=== PATIENT | male | born 1975 | race African-American/Black ===

== ENCOUNTER 2019-05-13 12:29 | Emergency (ER) | payer OTHER ==
[~2019-05-13] VITALS: Ht 177.8 cm; Wt 98.0 kg
[2019-05-13 12:29] VITALS: BP 134/72
--- NOTE | 2019-05-13 13:34 | PHYS DOC ---
Adult General Chief Complaint Chief Complaint: FACE PROBLEM HPI HPI 44-year-old male presents with gum pain above his front center teeth. The patient is unsure if he had a minor trauma from eating yesterday or something else happened. When he woke up this morning felt like his middle upper lip and upper gums were a bit swollen. They are tender to palpation. He has some expensive gold dental work and is wants to make sure there is not an infection. His tooth #9 is a bridge. He has no other complaints. Review of Systems Review of Systems Constitutional: Denies fever or chills [] Eyes: Denies change in visual acuity, redness, or eye pain [] HENT: Denies nasal congestion or sore throat. Gum pain [] Respiratory: Denies cough or shortness of breath [] Cardiovascular: No additional information not addressed in HPI [] GI: Denies abdominal pain, nausea, vomiting, bloody stools or diarrhea [] : Denies dysuria or hematuria [] Musculoskeletal: Denies back pain or joint pain [] Integument: Denies rash or skin lesions [] Neurologic: Denies headache, focal weakness or sensory changes [] Endocrine: Denies polyuria or polydipsia [] All other systems were reviewed and found to be within normal limits, except as documented in this note. Allergies Allergies Allergies Coded Allergies Type Severity Reaction Last Updated Verified No Known Drug Allergies 05/13/19 No Physical Exam Physical Exam Constitutional: Well developed, well nourished, no acute distress, non-toxic appearance. [] HENT: Small ecchymosis above tooth #8. Frenulum intact. No obvious sign of infection or abscess. Mild tenderness. Normocephalic, atraumatic, bilateral external ears normal, oropharynx moist, no oral exudates, nose normal. [] Eyes: PERRLA, EOMI, conjunctiva normal, no discharge. [] Neck: Normal range of motion, no tenderness, supple, no stridor. [] Cardiovascular: Heart rate regular rhythm, no murmur [] Lungs & Thorax: Bilateral breath sounds clear to auscultation [] Abdomen: Bowel sounds normal, soft, no tenderness, no masses, no pulsatile masses. [] Skin: Warm, dry, no erythema, no rash. [] Back: No tenderness, no CVA tenderness. [] Extremities: No tenderness, no cyanosis, no clubbing, ROM intact, no edema. [] Neurologic: Alert and oriented X 3, normal motor function, normal sensory function, no focal deficits noted. [] Psychologic: Affect normal, judgement normal, mood normal. [] EKG EKG [] Radiology/Procedures Radiology/Procedures [] Course & Med Decision Making Course & Med Decision Making Pertinent Labs and Imaging studies reviewed. (See chart for details) It looks like the patient has had minor trauma to the domes of his upper teeth. I do not see signs of infection or any other concerning issues. He is stable for discharge at this time. If this does not improve in the next day or 2, he will follow-up with his dentist. [] Dragon Disclaimer Dragon Disclaimer This electronic medical record was generated, in whole or in part, using a voice recognition dictation system. Departure Departure: Impression: Primary Impression: Pain in gums Disposition: 01 HOME/RESIDENCE PRIOR TO ADM Condition: STABLE Referrals: PCP,JAKE (PCP) Patient Instructions: Dental Pain, [id number] ROCIO RODNEY DO May 13, 2019 13:34
== END 2019-05-13 13:45 | disposition home or self-care (01) ==
LOC: ER 12:29
DX: S00.532A Contusion of oral cavity, initial encounter (principal); K06.8 Other specified disorders of gingiva and edentulous alveolar ridge; X58.XXXA Exposure to other specified factors, initial encounter; Y93.89 Activity, other specified; Y92.89 Other specified places as the place of occurrence of the external cause; Y99.8 Other external cause status
CPT/HCPCS: 99281

== ENCOUNTER 2019-06-01 05:01 | Emergency (ER) | payer OTHER ==
[~2019-06-01] VITALS: Ht 177.8 cm; Wt 98.0 kg
[2019-06-01 05:01] VITALS: BP 141/90
--- NOTE | 2019-06-01 05:11 | PHYS DOC ---
Past History Past Medical History: No Pertinent History Past Surgical History: No Surgical History Smoking: Non-smoker Alcohol Use: None Drug Use: None General Adult EDM: Chief Complaint: SORE THROAT HPI: HPI: 44-year-old male presents with 2 week history of sore throat which has become worse primarily on the right side. Reports intermittent subjective fever and chills. Denies known sick contacts. Patient reports increased pain with s wallowing and reports he is "losing his voice ". Review of Systems: Review of Systems: Constitutional: Reports intermittent subjective fever/chills Eyes: Denies redness or eye pain HENT: Denies nasal congestion; reports sore throat Respiratory: Denies cough or shortness of breath Cardiovascular: Denies chest pain or palpitations GI: Denies abdominal pain, nausea, or vomiting : Denies dysuria or hematuria Musculoskeletal: Denies back pain or joint pain Integument: Denies rash or skin lesions Neurologic: Denies headache, focal weakness or sensory changes Complete systems were reviewed and found to be within normal limits, except as documented in this note. Allergies: Allergies: Allergies Coded Allergies Type Severity Reaction Last Updated Verified No Known Drug Allergies 05/13/19 No Physical Exam: PE: Constitutional: Well developed, well nourished, no acute distress, non-toxic appearance HENT: Normocephalic, atraumatic, oropharynx moist, pharynx mildly erythematous without tonsillar exudate, uvula midline Eyes: Conjunctiva injected bilaterally, no discharge Neck: Normal range of motion, no tenderness, supple Cardiovascular: Heart rate normal, regular rhythm Lungs & Thorax: Bilateral breath sounds clear to auscultation, no wheezing Skin: Warm, dry, no erythema, no rash Extremities: No tenderness, ROM intact Neurologic: Alert and oriented X 3, no focal deficits noted Psychologic: Affect normal, judgment normal EKG: EKG: [] Radiology/Procedures: Radiology/Procedures: [] Course & Med Decision Making: Course & Med Decision Making Pertinent Lab studies reviewed. (See chart for details) Patient presents with sore throat and pain with swallowing. Symptomatic treatment provided with oral steroid. Rapid strep negative. Rx for empiric antibiotics given with instructions to "watch and wait." Patient stable for discharge with outpatient follow-up with PCP. Discussed findings and plan with patient, who acknowledges understanding and agreement. Senait Disclaimer: Senait Disclaimer: This electronic medical record was generated, in whole or in part, using a voice recognition dictation system. Departure Departure: Impression: Primary Impression: Pharyngitis Qualified Codes: J02.9 - Acute pharyngitis, unspecified Disposition: HOME, SELF-CARE Condition: STABLE Referrals: PCP,NO (PCP) Patient Instructions: Viral and Bacterial Pharyngitis, [id number] Additional Instructions: Hold antibiotics for 48 hours. If symptoms worsen or for fever > 100.3 F after 48 hours then start antibiotics as prescribed. Scripts Amoxicillin/Potassium Clav (AUGMENTIN [id number] TABLET) 1 Each Tablet 1 TAB PO BID for Pharyngitis for 7 Days, #14 TAB 0 Refills Prov: JOANN BUCKNER DO 06/01/19 JOANN BUCKNER DO Jun 01, 2019 05:11
[2019-06-01] MEDS: DEXAMETHASONE 4 MG TABLET PO ONE (05:15)
[2019-06-01] MEDS ORDERED: DEXAMETHASONE 4 MG TABLET ONE (05:15)
[2019-06-01] MEDS ORDERED: AMOX1TAB61 PO (05:21)
== END 2019-06-01 05:35 | disposition home or self-care (01) ==
LOC: ER 05:01
DX: J02.9 Acute pharyngitis, unspecified (principal)
CPT/HCPCS: 87070; 87880; 99283; J8540